=== PATIENT | male | born 1940 | race Two or more races ===

== ENCOUNTER 2024-04-01 10:51 | Outpatient (RCR) | payer MEDICARE, SELFPAY | END 2024-04-27 23:59 | disposition home or self-care (01) | LOC: SCTC 10:51 | PROVIDERS: PCP Internal Medicine Hospice and Palliative Medicine; Referring Provider Nurse Practitioner Family; Visit Provider Nurse Practitioner Family | DX: D69.6 Thrombocytopenia, unspecified (principal); D50.9 Iron deficiency anemia, unspecified; Z86.19 Personal history of other infectious and parasitic diseases; I25.2 Old myocardial infarction; E11.9 Type 2 diabetes mellitus without complications; E03.9 Hypothyroidism, unspecified; Z79.890 Hormone replacement therapy | CPT/HCPCS: 99212; G0463 ==